=== PATIENT | male | born 1960 | race Caucasian/White ===

== ENCOUNTER 2016-08-27 23:12 | Emergency (ER) | payer OTHER, SELFPAY ==
[~2016-08-27] VITALS: Ht 180.3 cm; Wt 100.7 kg
[2016-08-27 23:14] VITALS: BP 149/89
== END 2016-08-28 00:39 | disposition home or self-care (01) ==
LOC: ED 23:59
DX: M77.9 Enthesopathy, unspecified (principal)
CPT/HCPCS: 99284